=== PATIENT | male | born 1940 | race Caucasian/White ===

== ENCOUNTER 2016-08-15 14:05 | Emergency (ER) | payer MEDICARE ==
[~2016-08-15] VITALS: Ht 177.8 cm; Wt 99.8 kg
[~2016-08-15 14:05] MED LIST: BACTRIM DS 8001 TA1 PO; CARTIA XT240 MG PO; PRILOSEC OTC20 MG PO
[2016-08-15 14:39] LABS: UTC STREP SCREEN NOT DETECTED (NOTDETECTED)
[2016-08-15 14:40] LABS: URINE BILIRUBIN - DIPSTICK NEGATIVE (NEG); URINE BLOOD NEGATIVE (NEG)
[2016-08-15] MEDS ORDERED: LEVAQUIN 750 M750 MG PO (15:28)
--- NOTE | 2016-08-15 15:29 | Urgent Treatment Center Report ---
History of Present Issue Date/Time Seen by Provider 08/15/16 1595 Visit Reason Pt arrived:Walked Presenting Problem:PT C/O BEING "PUNEY", COUGH, CONGESTION, AND SORE THROAT Location if Accident: Onset of symptoms date/time:/ or onset unknown for:MEDICAL HX UNKNOWN Have you (or family members/close friends) recently traveled outside the [place]? N If Yes, where/when: Have you had exposure to infectious disease within the past month? TB? Other? Specify: Patient state that he has not felt well for a couple of days that has continued to get worse. States that yesterday he coughed and coughed and now today his throat is sore. He has tickets for some basketball games coming up soon and he wanted to make sure that he was well enough to go. Source patient, family ALLERGIES Coded Allergies: No Known Drug Allergies (12/07/15) Home Medications Active Scripts SULFAMETHOXAZOLE W/TRIMETHOPRI (Bactrim Ds Tab) 1 TAB PO BID #14 TAB Prov: 12/10/15 Reported Medications DILTIAZEM HCL (Cartia Xt) 240 MG PO #90 OMEPRAZOLE MAGNESIUM (Prilosec OTC) 20 MG PO DAILY MISCELLANEOUS (UNKNOWN MEDICATION) 1 ADAM TP History Medical History General CAD? No Angina: No [place]: No Hypertension? Yes Hyperlipidemia? No CHF? No DVT? No PE? No COPD? No Asthma? No Anemia? No GERD? No Gastric ulcers? No GI Bleed? No Hernia? No Thyroid Problems? No Hypothyroidism? No CVA? No Seizures? No Diabetes? No Renal Insuffiency? No UTI? No Stones? No BPH? No GB Disease: No Nephritic Syndrome? No Asplenia? No Hepatitis? No Sickle Cell Disease? No Arthritis? No Migraines? No Cataracts? Yes Glaucoma? No MRSA? No HIV? No TB? No Anxiety? No Depression? No Cancer? No More? No Immunization HX DT/Tetanus Unknown Pneumonia Refuses Surgical Hx Previous Surgery?Y BILATERAL HIP REPLACEMENT Social History Smoking Hx Smoker: Never Smoker Tobacco: No Alcohol Alcohol: No Review of Systems All Other Systems Reviewed and Negative ENT throat pain. Respiratory cough Comment States that he is coughing a lot and feels like he has pneumonia Physical Exam Vital Signs Vital Signs Date Time Temp Pulse Resp B/P Pulse O2 O2 Flow FiO2 Ox Delivery Rate 08/15 1416 98.2 71 18 168/94 95 General Appearance normal appearance, WD/WN, no apparent distress Respiratory Status Yes: trachea midline, chest symmetrical, non tender chest. No: respiratory distress. Lung Sounds left: rhonchi, wheezing. 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 No Results/Orders Laboratory Tests 08/15/16 1423: Influenza Type A Ag NOT DETECTED, Influenza Type B Ag NOT DETECTED, Group A Strep Screen NOT DETECTED, Urine Color OTHER, Urine Appearance Sl Cloudy, Urine pH 5.5, Ur Specific [place] 1.025, Urine Protein 100, Urine Ketones NEGATIVE, Urine Blood NEGATIVE, Urine Nitrate NEGATIVE, Urine Bilirubin NEGATIVE, Urine Urobilinogen 0.2, Ur Leukocyte Esterase NEGATIVE, Urine Glucose 250 Orders Procedure Date/time Status CHEST(2 VIEWS-NOT PORTABLE) 08/15 142 Active [facility] URINE DIPSTICK 08/15 142 Complete [facility] STREP SCREEN 08/15 142 Complete [facility] FLU A,B 08/15 142 Complete XRAY/CT/US XRAY/CT/US XR interpretation by reviewed by me Xray Results LLL infiltrate Departure Departure Time of Disposition 1524 Disposition DC Home or Self Care(routine) Clinical Impression Primary Impression: Lung infiltrate Condition STABLE Referrals [facility],Jarrett Goetz (Family) Patient Instructions DI for Pneumonia -- Adult, Pneumonia-Adult Additional Instructions Drink plenty of fluids Over the counter Motrin or Tylenol as needed for fever or Pain Follow up with family doctor Return if needed Discharge Counseling Counseled pt/family regarding diagnosis, test results, medications/RX, home care, follow up needs Prescriptions Current Visit Scripts Levofloxacin (Levaquin 750mg) 750 MG PO DAILY #5 TAB at 1533
--- NOTE | 2016-08-15 15:29 | Urgent Treatment Center Report ---
History of Present Issue Date/Time Seen by Provider 08/15/16 5395 Visit Reason Pt arrived:Walked Presenting Problem:PT C/O BEING "PUNEY", COUGH, CONGESTION, AND SORE THROAT Location if Accident: Onset of symptoms date/time:/ or onset unknown for:MEDICAL HX UNKNOWN Have you (or family members/close friends) recently traveled outside the [place]? N If Yes, where/when: Have you had exposure to infectious disease within the past month? TB? Other? Specify: Patient state that he has not felt well for a couple of days that has continued to get worse. States that yesterday he coughed and coughed and now today his throat is sore. He has tickets for some basketball games coming up soon and he wanted to make sure that he was well enough to go. Source patient, family ALLERGIES Coded Allergies: No Known Drug Allergies (12/07/15) Home Medications Active Scripts SULFAMETHOXAZOLE W/TRIMETHOPRI (Bactrim Ds Tab) 1 TAB PO BID #14 TAB Prov: 12/10/15 Reported Medications DILTIAZEM HCL (Cartia Xt) 240 MG PO #90 OMEPRAZOLE MAGNESIUM (Prilosec OTC) 20 MG PO DAILY MISCELLANEOUS (UNKNOWN MEDICATION) 1 ADAM TP History Medical History General CAD? No Angina: No [place]: No Hypertension? Yes Hyperlipidemia? No CHF? No DVT? No PE? No COPD? No Asthma? No Anemia? No GERD? No Gastric ulcers? No GI Bleed? No Hernia? No Thyroid Problems? No Hypothyroidism? No CVA? No Seizures? No Diabetes? No Renal Insuffiency? No UTI? No Stones? No BPH? No GB Disease: No Nephritic Syndrome? No Asplenia? No Hepatitis? No Sickle Cell Disease? No Arthritis? No Migraines? No Cataracts? Yes Glaucoma? No MRSA? No HIV? No TB? No Anxiety? No Depression? No Cancer? No More? No Immunization HX DT/Tetanus Unknown Pneumonia Refuses Surgical Hx Previous Surgery?Y BILATERAL HIP REPLACEMENT Social History Smoking Hx Smoker: Never Smoker Tobacco: No Alcohol Alcohol: No Review of Systems All Other Systems Reviewed and Negative ENT throat pain. Respiratory cough Comment States that he is coughing a lot and feels like he has pneumonia Physical Exam Vital Signs Vital Signs Date Time Temp Pulse Resp B/P Pulse O2 O2 Flow FiO2 Ox Delivery Rate 08/15 1416 98.2 71 18 168/94 95 General Appearance normal appearance, WD/WN, no apparent distress Respiratory Status Yes: trachea midline, chest symmetrical, non tender chest. No: respiratory distress. Lung Sounds left: rhonchi, wheezing. 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 No Results/Orders Laboratory Tests 08/15/16 1423: Influenza Type A Ag NOT DETECTED, Influenza Type B Ag NOT DETECTED, Group A Strep Screen NOT DETECTED, Urine Color OTHER, Urine Appearance Sl Cloudy, Urine pH 5.5, Ur Specific [place] 1.025, Urine Protein 100, Urine Ketones NEGATIVE, Urine Blood NEGATIVE, Urine Nitrate NEGATIVE, Urine Bilirubin NEGATIVE, Urine Urobilinogen 0.2, Ur Leukocyte Esterase NEGATIVE, Urine Glucose 250 Orders Procedure Date/time Status CHEST(2 VIEWS-NOT PORTABLE) 08/15 142 Active [facility] URINE DIPSTICK 08/15 142 Complete [facility] STREP SCREEN 08/15 142 Complete [facility] FLU A,B 08/15 142 Complete XRAY/CT/US XRAY/CT/US XR interpretation by reviewed by me Xray Results LLL infiltrate Departure Departure Time of Disposition 1524 Disposition DC Home or Self Care(routine) Clinical Impression Primary Impression: Lung infiltrate Condition STABLE Referrals [facility],Jarrett Goetz (Family) Patient Instructions DI for Pneumonia -- Adult, Pneumonia-Adult Additional Instructions Drink plenty of fluids Over the counter Motrin or Tylenol as needed for fever or Pain Follow up with family doctor Return if needed Discharge Counseling Counseled pt/family regarding diagnosis, test results, medications/RX, home care, follow up needs Prescriptions Current Visit Scripts Levofloxacin (Levaquin 750mg) 750 MG PO DAILY #5 TAB at 1533
[2016-08-15 15:32] VITALS: BP 168/94
--- NOTE | 2016-08-15 16:54 | RADIOLOGY REPORT PS360 ---
CHEST(2 VIEWS-NOT PORTABLE) COMPARISON: PA and lateral chest 12/08/2015 HISTORY: Cough, congestion and wheezing TECHNIQUE: PA and lateral chest FINDINGS: This is a somewhat poor inspiration however lung genao appear clear of infiltrate. There may be minimal atelectasis or scarring at left base. There is borderline cardio megaly without failure. There is a small hiatal hernia which was noted previously. Is no pleural fluid. There is minor dextroscoliotic curvature of the thoracic spine with mild degenerative change. IMPRESSION: Stable small hiatal hernia, no acute chest pathology noted
== END 2016-08-15 15:33 | disposition home or self-care (01) ==
LOC: UTC 14:05
PROVIDERS: Nurse Practitioner
DX: R91.8 Other nonspecific abnormal finding of lung field (principal); I10 Essential (primary) hypertension

== ENCOUNTER → 2017-02-07 | Outpatient (CLI) | payer MEDICARE ==
[~2017-02-07] MED LIST changes: +LEVAQUIN 750 M750 MG PO
== END ==
LOC: RT 11:31
DX: G47.30 Sleep apnea, unspecified (principal); G47.10 Hypersomnia, unspecified; I10 Essential (primary) hypertension; E66.9 Obesity, unspecified
CPT/HCPCS: G0399-TC